=== PATIENT | male | born 1990 | race Caucasian/White ===

== ENCOUNTER 2022-09-14 15:40 | Outpatient (CLI) | payer BC, SELFPAY ==
--- NOTE | 2022-09-14 16:00 | CRLHL7_ITS ---
For Patients: As a result of the Century Cures Act, medical imaging exams and procedure reports are released immediately into your electronic medical record. You may view this report before your referring provider. If you have questions, please contact your health care provider. INDICATION: History of left lower extremity DVT. TECHNIQUE: : Left lower extremity duplex venous ultrasound utilizing grayscale imaging to assess compressibility as well as color and spectral Doppler sonography. COMPARISON: None available. FINDINGS: Common femoral vein: Fully compressible with patent internal flow. Femoral vein: Fully compressible with patent internal flow. Popliteal vein: Fully compressible with patent internal flow. Posterior tibial veins: Fully compressible with patent internal flow. Peroneal veins: Fully compressible with patent internal flow. Other: Negative. IMPRESSION: No evidence of left lower extremity DVT. Dictated by Everardo Carter MD @ 09/16/2022 11:46:56 AM (Electronically Signed)
== END 2022-09-14 15:41 | disposition home or self-care (01) ==
LOC: US 15:41
PROVIDERS: PCP Emergency Medicine; Visit Provider Emergency Medicine
DX: I82.409 Acute embolism and thrombosis of unspecified deep veins of unspecified lower extremity (principal)
CPT/HCPCS: 93971

== ENCOUNTER 2023-08-22 16:08 | Outpatient (CLI) | payer BC, SELFPAY | END 2023-08-22 16:09 | disposition home or self-care (01) | PROVIDERS: PCP Emergency Medicine; Visit Provider Emergency Medicine | DX: I26.99 Other pulmonary embolism without acute cor pulmonale (principal) | CPT/HCPCS: 81240; 81241; 85300; 85303; 85306; 85610; 85613; 85730; 86146; 86147 ==

== ENCOUNTER 2023-09-17 07:29 | Outpatient (CLI) | payer BC, SELFPAY ==
--- NOTE | 2023-09-17 08:00 | CT_ITS ---
Final Report Patient: DOMENICA ROSEN Facility:?[facility] Patient ID:?[id number] Site Patient ID:?[id number]. Site :?04/28/1960 Study:?CT Chest/Abd/Pelvis W/IV & WATER PREP-09/17/2023 8:54:08 AM Ordering Physician:CADENCE Final Report: Indication: ACUTE EMBOLISM 2 EPISODES OF VTE,R/O Malignancy Technique: Postcontrast CT chest, abdomen and pelvis. 90 cc Isovue 370 intravenous contrast. Please note that all CT scans at this facility use dose modulation, iterative reconstruction, and/or weight-based dosing when appropriate to reduce radiation dose to as low as reasonably achievable. Comparison: None available Findings: In the chest, there is mild incidental residual thymic tissue in the anterior mediastinum. Mild bilateral subareolar gynecomastia. No enlarged lymph nodes within the mediastinum, marlo or axilla. No suspicious thyroid lesion. No pleural or pericardial effusion. No aortic dissection or aneurysm. Osseous structures are within normal limits. Lungs are clear. No infiltrate or edema. No pneumothorax. No suspicious pulmonary nodule. No pulmonary fibrosis. In the abdomen, there is no intrahepatic mass. The liver is prominent measuring 19.2 cm. No intrahepatic mass. The spleen is normal measuring 10.9 cm. Normal gallbladder. No calcified gallstones or biliary obstruction. The pancreas is normal. Normal adrenal glands. Kidneys are normal. No enlarged mesenteric or retroperitoneal lymph nodes. No gastric outlet obstruction. Incomplete distention of the stomach noted. Portal vein is widely patent. In the pelvis, the bladder is normal. The prostate is nonenlarged. Incidental prostate calcifications are present. Normal seminal vesicles. No enlarged inguinal or pelvic sidewall lymph nodes. The ureters are within normal limits. No bowel obstruction, free air, free fluid or abscess. No inflammatory changes are present. No evidence of inflammatory bowel disease. Osseous structures are unremarkable. Impression: Hepatomegaly without intrahepatic mass or ascites. No adenopathy in the chest, abdomen or pelvis. No acute inflammatory changes. Please note that all CT scans at this facility use dose modulation, iterative reconstruction, and/or weight-based dosing when appropriate to reduce radiation dose to as low as reasonably achievable. Dictated by Ramone Piedra MD @ 09/17/2023 1:04:06 PM (Electronic Signature)
== END 2023-09-17 07:30 | disposition home or self-care (01) ==
LOC: CT 07:29
PROVIDERS: PCP Emergency Medicine; Visit Provider Internal Medicine Hematology & Oncology
DX: I82.409 Acute embolism and thrombosis of unspecified deep veins of unspecified lower extremity (principal); I26.99 Other pulmonary embolism without acute cor pulmonale; R16.0 Hepatomegaly, not elsewhere classified
CPT/HCPCS: 71260; 74177; Q9967

== ENCOUNTER 2023-10-01 14:14 | Outpatient (CLI) | payer BC, SELFPAY | END 2023-10-01 14:15 | disposition home or self-care (01) | LOC: NFLDREF 10-02 10:52 | PROVIDERS: PCP Emergency Medicine; Referring Provider Emergency Medicine; Visit Provider Internal Medicine Hematology & Oncology | DX: R16.0 Hepatomegaly, not elsewhere classified (principal) | CPT/HCPCS: 80053; 85610; 85730 ==

== ENCOUNTER 2024-02-17 08:38 | Outpatient (CLI) | payer BC, SELFPAY ==
--- NOTE | 2024-02-17 09:00 | CRLHL7_ITS ---
For Patients: As a result of the Century Cures Act, medical imaging exams and procedure reports are released immediately into your electronic medical record. You may view this report before your referring provider. If you have questions, please contact your health care provider. Indication: Hepatomegaly Technique: CT Chest/Abd/Pelvis W/ ISOVUE 370 Please note that all CT scans at this facility use dose modulation, iterative reconstruction, and/or weight-based dosing when appropriate to reduce radiation dose to as low as reasonably achievable. Comparison: 09/17/2023 Findings: In the chest, stable subcentimeter thyroid nodules no mediastinal, hilar or axillary adenopathy. No pleural or pericardial effusion. No hiatal hernia. Lungs are clear. No infiltrate, edema or nodule. No pneumothorax. In the abdomen, the liver measures 18.8 cm. No intrahepatic mass. No ascites. The pancreas and spleen are normal. The adrenal glands and kidneys are normal. Unremarkable gallbladder. A small umbilical hernia containing fat incidentally noted. No retroperitoneal or mesenteric adenopathy. In the pelvis, the bladder is normal. No pelvic mass. Increased stool in the rectum. No bowel obstruction or inflammatory change. No pelvic or inguinal adenopathy. No hernia within the inguinal regions. Osseous structures are normal. Impression: The liver measures 18.8 cm, previously measuring 19.2 cm. Constipation with increased stool burden in the rectum. Please note that all CT scans at this facility use dose modulation, iterative reconstruction, and/or weight-based dosing when appropriate to reduce radiation dose to as low as reasonably achievable. Dictated by Ramone Piedra MD @ 02/17/2024 9:34:25 AM (Electronically Signed)
== END 2024-02-17 08:39 | disposition home or self-care (01) ==
LOC: CT 08:39
PROVIDERS: PCP Emergency Medicine; Visit Provider Internal Medicine Hematology & Oncology
DX: R16.0 Hepatomegaly, not elsewhere classified (principal); K59.00 Constipation, unspecified; I26.99 Other pulmonary embolism without acute cor pulmonale
CPT/HCPCS: 71260; 74177; Q9967

== ENCOUNTER 2024-02-26 11:00 | Outpatient (RCR) | payer BC, SELFPAY ==
[2023-09-19 09:10] LABS: Hepatitis B Surface Antigen* Negative (Negative)
[2023-09-19 09:20] LABS: HIV 1/2/P24 Combo Screen* Negative (Negative)
[2023-09-19 09:28] LABS: Hepatitis C Virus Antibody* Negative (Negative)
[2023-09-20 18:06] LABS: Hepatitis B Core Antibodies Negative (Negative)
[2024-02-17 08:58] LABS: Albumin* 4.7 g/dL (3.3-5.0)
[2024-02-17 09:01] LABS: Alanine Aminotransferase* 17 U/L (4-50); Alkaline Phosphatase* 61 U/L (40-150); Aspartate Amino Transferase* 23 U/L (12-35); Bilirubin Direct* 0.2 mg/dL (0.0-0.5); Bilirubin Total* 0.6 mg/dL (0.1-1.5); Total Protein* 7.3 g/dL (6.0-8.3)
[2024-02-17 14:01] LABS: D Dimer Quantitative* 0.47 ug/ml (0.00-0.50)
== END 2024-03-01 23:59 | disposition home or self-care (01) ==
LOC: CCIC 11:00
PROVIDERS: PCP Emergency Medicine; Referring Provider Emergency Medicine; Visit Provider Internal Medicine Hematology & Oncology
DX: I82.402 Acute embolism and thrombosis of unspecified deep veins of left lower extremity (principal); I26.93 Single subsegmental thrombotic pulmonary embolism without acute cor pulmonale; R16.0 Hepatomegaly, not elsewhere classified
CPT/HCPCS: 36415; 80076; 85379; 86703; 86704; 86803; 87340; 99202; 99204; 99213; 99214; G0463